=== PATIENT | male | born 1980 | race Hispanic/Latino ===

== ENCOUNTER 2019-01-20 10:41 | Emergency (ER) | payer SELFPAY ==
[2019-01-20 11:24] LABS: BASOPHILS % (AUTO) 0.2 % (0.0-5.0); EOSINOPHILS % (AUTO) 3.1 % (0.0-8.0); HEMATOCRIT 46.5 % (42-54); LYMPHOCYTES % (AUTO) 24.3 % (21.0-51.0); MEAN CORPUSCULAR HEMOGLOBIN 30.3 pg (27.0-33.0); MEAN CORPUSCULAR HGB CONC 34.2 g/dL (32.0-36.0); MEAN CORPUSCULAR VOLUME 88.7 fL (79-99); MONOCYTES % (AUTO) 6.7 % (3.0-13.0); NEUTROPHILS % (AUTO) 65.7 % (40.0-77.0); NUCLEATED RED BLOOD CELLS 0.1 % (0.0-0.19); PLATELET COUNT (AUTO) 170 K/uL (130-400); RED BLOOD CELL COUNT(AUTO) 5.24 MIL/uL (4.50-6.20); WHITE BLOOD COUNT (AUTO) 6.6 K/uL (4.8-10.8)
[2019-01-20 11:28] LABS: CREATININE 0.8 mg/dL (0.5-1.5); POTASSIUM 3.7 mmol/L (3.5-5.1)
[2019-01-20 11:32] LABS: ALBUMIN 4.2 g/dL (3.5-5.0); BILIRUBIN,DIRECT 0.2 mg/dL (0.0-0.3); BILIRUBIN,TOTAL 1.2 mg/dL (0.2-1.0); TOTAL PROTEIN, SERUM 8.5 g/dL (6.0-8.3)
[2019-01-20 11:50] LABS: APPEARANCE,URINE CLEAR (CLEAR); BILIRUBIN,URINE NEGATIVE (NEGATIVE); COLOR,URINE YELLOW (YELLOW); GLUCOSE, URINE (UA) NEGATIVE (NEGATIVE); KETONES,URINE NEGATIVE (NEGATIVE); LEUKOCYTE ESTERASE ,URINE NEGATIVE (NEGATIVE); NITRATE,URINE NEGATIVE (NEGATIVE); OCCULT BLOOD,URINE NEGATIVE (NEGATIVE); PROTEIN,URINE NEGATIVE (NEGATIVE)
[2019-01-20 11:56] LABS: B-TYPE NATRIURETIC PEPTIDE 19 pg/mL (0-100)
[2019-01-20] MEDS ORDERED: CEFAZOLIN SODIUM 1 GM VIAL ONE (13:00)
[2019-01-20] MEDS ORDERED: SODIUM CHLORIDE 0.9% 100 ML IV ONE (13:00)
== END 2019-01-20 13:56 | disposition home or self-care (01) ==
LOC: EDH 10:41
DX: S80.862A Insect bite (nonvenomous), left lower leg, initial encounter (principal); S80.861A Insect bite (nonvenomous), right lower leg, initial encounter; L03.116 Cellulitis of left lower limb; L03.115 Cellulitis of right lower limb; I10 Essential (primary) hypertension; W57.XXXA Bitten or stung by nonvenomous insect and other nonvenomous arthropods, initial encounter; Y93.89 Activity, other specified; Y92.89 Other specified places as the place of occurrence of the external cause; Y99.8 Other external cause status
CPT/HCPCS: 36415; 80048; 80076; 81003; 83880; 85025; 96365; 99284; J0690

== ENCOUNTER 2019-06-19 18:52 | Emergency (ER) | payer OTHER ==
[2019-06-19] MEDS ORDERED: ASPIRIN 81MG TAB.CHEW ONE (19:10)
[2019-06-19 19:25] LABS: BASOPHILS % (AUTO) 0.7 % (0.0-5.0); EOSINOPHILS % (AUTO) 2.3 % (0.0-8.0); HEMATOCRIT 41.1 % (42-54); LYMPHOCYTES % (AUTO) 36.3 % (21.0-51.0); MEAN CORPUSCULAR HEMOGLOBIN 29.9 pg (27.0-33.0); MEAN CORPUSCULAR HGB CONC 34.1 g/dL (32.0-36.0); MEAN CORPUSCULAR VOLUME 87.8 fL (79-99); MONOCYTES % (AUTO) 7.8 % (3.0-13.0); NEUTROPHILS % (AUTO) 52.3 % (40.0-77.0); PLATELET COUNT (AUTO) 217 K/uL (130-400); RED BLOOD CELL COUNT(AUTO) 4.68 MIL/uL (4.50-6.20); RED CELL DISTRIBUTION WIDTH 12.6 % (11.0-15.5); WHITE BLOOD COUNT (AUTO) 6.8 K/uL (4.8-10.8)
[2019-06-19 19:34] LABS: CREATININE 0.9 mg/dL (0.5-1.5); POTASSIUM 3.8 mmol/L (3.5-5.1)
[2019-06-19 19:39] LABS: ALBUMIN 3.9 g/dL (3.5-5.0); BILIRUBIN,TOTAL 0.6 mg/dL (0.2-1.0); TOTAL PROTEIN, SERUM 7.7 g/dL (6.0-8.3)
[2019-06-19 19:40] LABS: INR 0.98 (0.85-1.15); PARTIAL THROMBOPLASTIN TIME 28.8 SEC (26.3-35.5); PROTHROMBIN TIME 10.3 SEC (9.6-11.6)
[2019-06-19] MEDS ORDERED: THIAMINE HCL 100 MG/ML 2ML VIAL ONE (20:02)
[2019-06-19] MEDS ORDERED: SODIUM CHLORIDE 0.9% 1000ML 1,000 ML IV ONE (20:02)
[2019-06-19 20:09] LABS: AMPHET/METH SCREEN,URINE NEGATIVE (NEGATIVE); BARBITURATE SCREEN, URINE NEGATIVE (NEGATIVE); BENZODIAZEPINES SCREEN,URINE NEGATIVE (NEGATIVE); CANNABINOID SCREEN,URINE NEGATIVE (NEGATIVE); COCAINE SCREEN,URINE NEGATIVE (NEGATIVE); OPIATE SCREEN,URINE NEGATIVE (NEGATIVE); PHENCYCLIDINE SCREEN,URINE NEGATIVE (NEGATIVE)
== END 2019-06-19 22:07 | disposition home or self-care (01) ==
LOC: EDH 18:52
DX: R07.89 Other chest pain (principal); F10.10 Alcohol abuse, uncomplicated; I10 Essential (primary) hypertension; Z72.0 Tobacco use
CPT/HCPCS: 36415; 71045; 80053; 80305; 82550; 84484; 85025; 85610; 85730; 93005; 96365; 99285; G0480; J3411; J7030

== ENCOUNTER 2021-03-15 22:38 | Emergency (ER) | payer MEDICAID, OTHER ==
[~2021-03-15] VITALS: Ht 167.6 cm; Wt 100.2 kg
[2021-03-15] MEDS ORDERED: LIDOCAINE HCL 2% VISCOUS 15 ML UDCUP PO ONE (23:00)
[2021-03-15] MEDS ORDERED: MAG/ALUM/SIMETH 30 ML UDCUP PO ONE (23:00)
[2021-03-15] MEDS ORDERED: FAMOTIDINE 20MG VIAL IV ONE (23:00)
[2021-03-15] MEDS ORDERED: DICYCLOMINE HCL 10 MG/5 ML ML PO ONE (23:00)
[2021-03-15 23:07] LABS: BASOPHILS % (AUTO) 0.8 % (0.0-5.0); HEMATOCRIT 40.5 % (42-54); LYMPHOCYTES % (AUTO) 44.1 % (21.0-51.0); MEAN CORPUSCULAR HEMOGLOBIN 30.9 pg (27.0-33.0); MEAN CORPUSCULAR HGB CONC 34.8 g/dL (32.0-36.0); MEAN CORPUSCULAR VOLUME 88.8 fL (79-99); MONOCYTES % (AUTO) 5.7 % (3.0-13.0); PLATELET COUNT (AUTO) 163 K/uL (130-400); RED BLOOD CELL COUNT(AUTO) 4.56 MIL/uL (4.50-6.20); RED CELL DISTRIBUTION WIDTH 12.5 % (11.0-15.5); WHITE BLOOD COUNT (AUTO) 8.4 K/uL (4.8-10.8)
[2021-03-15 23:51] LABS: APPEARANCE,URINE Clear (CLEAR); BILIRUBIN,URINE Negative (NEGATIVE); COLOR,URINE Yellow (YELLOW); GLUCOSE, URINE (UA) Negative (NEGATIVE); KETONES,URINE Negative (NEGATIVE); LEUKOCYTE ESTERASE ,URINE Negative (NEGATIVE); NITRATE,URINE Negative (NEGATIVE); OCCULT BLOOD,URINE Negative (NEGATIVE); PH,URINE 5.5 (5.0-8.0); PROTEIN,URINE Negative (NEGATIVE)
[2021-03-15 23:58] LABS: AMPHET/METH SCREEN,URINE NEGATIVE (NEGATIVE); BARBITURATE SCREEN, URINE NEGATIVE (NEGATIVE); BENZODIAZEPINES SCREEN,URINE NEGATIVE (NEGATIVE); CANNABINOID SCREEN,URINE NEGATIVE (NEGATIVE); COCAINE SCREEN,URINE NEGATIVE (NEGATIVE); OPIATE SCREEN,URINE NEGATIVE (NEGATIVE); PHENCYCLIDINE SCREEN,URINE NEGATIVE (NEGATIVE)
[2021-03-15 23:58] LABS: BILIRUBIN,TOTAL 0.7 mg/dL (0.2-1.0)
[2021-03-16 00:09] VITALS: BP 114/68
[2021-03-16] MEDS ORDERED: POTASSIUM BICARB/CIT AC 25 MEQ TABLET.EFF PO ONE (00:30)
== END 2021-03-16 00:39 | disposition home or self-care (01) ==
LOC: EDH 22:38
DX: K21.9 Gastro-esophageal reflux disease without esophagitis (principal); I10 Essential (primary) hypertension
CPT/HCPCS: 36415; 71045; 80053; 80305; 81003; 83690; 84484; 85025; 93005; 96374; 99285; S0028; J3490

== ENCOUNTER 2021-08-12 22:10 | Emergency (ER) | payer MEDICAID ==
[~2021-08-12] VITALS: Ht 170.2 cm; Wt 90.7 kg
[2021-08-12 22:58] LABS: BASOPHILS % (AUTO) 0.7 % (0.0-5.0); HEMATOCRIT 43.3 % (42-54); LYMPHOCYTES % (AUTO) 40.7 % (21.0-51.0); MEAN CORPUSCULAR HEMOGLOBIN 29.7 pg (27.0-33.0); MEAN CORPUSCULAR HGB CONC 34.2 g/dL (32.0-36.0); MEAN CORPUSCULAR VOLUME 86.8 fL (79-99); MONOCYTES % (AUTO) 6.3 % (3.0-13.0); PLATELET COUNT (AUTO) 208 K/uL (130-400); RED BLOOD CELL COUNT(AUTO) 4.99 MIL/uL (4.50-6.20); RED CELL DISTRIBUTION WIDTH 12.5 % (11.0-15.5); WHITE BLOOD COUNT (AUTO) 7.5 K/uL (4.8-10.8)
[2021-08-12] MEDS ORDERED: ASPIRIN 325MG TAB PO ONE (23:00)
[2021-08-12 23:01] LABS: APPEARANCE,URINE Clear (CLEAR); BILIRUBIN,URINE Negative (NEGATIVE); COLOR,URINE Yellow (YELLOW); GLUCOSE, URINE (UA) Negative (NEGATIVE); KETONES,URINE Negative (NEGATIVE); LEUKOCYTE ESTERASE ,URINE Negative (NEGATIVE); NITRATE,URINE Negative (NEGATIVE); OCCULT BLOOD,URINE Negative (NEGATIVE); PROTEIN,URINE Negative (NEGATIVE)
[2021-08-12 23:03] LABS: INR 1.03 (0.85-1.15); PROTHROMBIN TIME 11.2 SEC (9.6-11.6)
[2021-08-12 23:05] LABS: PARTIAL THROMBOPLASTIN TIME 32.2 SEC (26.3-35.5)
[2021-08-12 23:08] LABS: AMPHET/METH SCREEN,URINE NEGATIVE (NEGATIVE); BARBITURATE SCREEN, URINE NEGATIVE (NEGATIVE); BENZODIAZEPINES SCREEN,URINE NEGATIVE (NEGATIVE); CANNABINOID SCREEN,URINE NEGATIVE (NEGATIVE); COCAINE SCREEN,URINE POSITIVE (NEGATIVE); OPIATE SCREEN,URINE NEGATIVE (NEGATIVE); PHENCYCLIDINE SCREEN,URINE NEGATIVE (NEGATIVE)
[2021-08-12 23:16] LABS: ALBUMIN 4.3 g/dL (3.5-5.0); BILIRUBIN,TOTAL 0.7 mg/dL (0.2-1.0); CREATININE 0.9 mg/dL (0.5-1.5); MAGNESIUM 2.2 mg/dL (1.80-2.40); POTASSIUM 3.6 mmol/L (3.5-5.1); TOTAL PROTEIN, SERUM 8.1 g/dL (6.0-8.3)
[2021-08-12 23:58] LABS: B-TYPE NATRIURETIC PEPTIDE 9 pg/mL (0-100)
[2021-08-13 02:58] VITALS: BP 115/73
== END 2021-08-13 03:48 | disposition home or self-care (01) ==
LOC: EDH 22:10
DX: R07.89 Other chest pain (principal); F10.129 Alcohol abuse with intoxication, unspecified; F14.10 Cocaine abuse, uncomplicated; I10 Essential (primary) hypertension; Z79.82 Long term (current) use of aspirin
CPT/HCPCS: 36415; 71045; 80053; 80305; 81003; 82550; 83735; 83880; 84484; 85025; 85610; 85730; 93005

== ENCOUNTER 2022-06-17 18:27 | Emergency (ER) | payer MEDICAID ==
[~2022-06-17] VITALS: Ht 165.1 cm; Wt 99.8 kg
[2022-06-17 19:26] VITALS: BP 150/90
[2022-06-17] MEDS ORDERED: CETI10TA57 PO (21:16)
[2022-06-17] MEDS ORDERED: CETIRIZINE HCL 5 MG TABLET PO ONE ×2 (21:33→21:35)
[2022-06-18] MEDS ORDERED: CETIRIZINE HCL 5 MG TABLET PO SCH (09:00)
== END 2022-06-17 21:41 | disposition home or self-care (01) ==
LOC: EDH 18:27
DX: J30.2 Other seasonal allergic rhinitis (principal); Z20.822 Contact with and (suspected) exposure to COVID-19; I10 Essential (primary) hypertension
CPT/HCPCS: 99283; 87635; 87880; 87804 ×2; C9803

== ENCOUNTER 2023-06-15 01:29 | Emergency (ER) | payer MEDICAID, OTHER ==
[~2023-06-15] VITALS: Ht 162.6 cm; Wt 95.3 kg
[~2023-06-15 01:29] MED LIST: CETI10TA57 PO
[2023-06-15 01:43] LABS: ADD UA MICROSCOPIC NO; APPEARANCE,URINE CLEAR (CLEAR); BILIRUBIN,URINE NEGATIVE (NEGATIVE); COLOR,URINE COLORLESS (YELLOW); GLUCOSE, URINE (UA) NEGATIVE (NEGATIVE); KETONES,URINE NEGATIVE (NEGATIVE); LEUKOCYTE ESTERASE ,URINE NEGATIVE Leu/uL (NEGATIVE); NITRATE,URINE NEGATIVE (NEGATIVE); OCCULT BLOOD,URINE NEGATIVE (NEGATIVE); PROTEIN,URINE NEGATIVE (NEGATIVE); UROBILINOGEN,URINE 0.2 mg/dL (0.2-1.0)
[2023-06-15 01:53] LABS: AMPHET/METH SCREEN,URINE NEGATIVE (NEGATIVE); BARBITURATE SCREEN, URINE NEGATIVE (NEGATIVE); BENZODIAZEPINES SCREEN,URINE NEGATIVE (NEGATIVE); CANNABINOID SCREEN,URINE NEGATIVE (NEGATIVE); COCAINE SCREEN,URINE NEGATIVE (NEGATIVE); OPIATE SCREEN,URINE NEGATIVE (NEGATIVE); PHENCYCLIDINE SCREEN,URINE NEGATIVE (NEGATIVE)
[2023-06-15] MEDS ORDERED: IOHEXOL 350 MG/ML 100ML INFUS..BTL IV ONE (01:54)
[2023-06-15 01:56] LABS: BASOPHILS # (AUTO) 0.04 K/uL (0.00-0.20); BASOPHILS % (AUTO) 0.7 % (0.0-5.0); EOSINOPHILS # (AUTO) 0.07 K/uL (0.00-0.70); EOSINOPHILS % (AUTO) 1.2 % (0.0-8.0); HEMATOCRIT 43.4 % (42-54); IMMATURE GRANULOCYTE ABSOLUTE 0.02 K/uL (0-1); LYMPHOCYTES # (AUTO) 1.6 K/uL (1.0-4.8); LYMPHOCYTES % (AUTO) 27.4 % (21.0-51.0); MEAN CORPUSCULAR HEMOGLOBIN 29.4 pg (27.0-33.0); MEAN CORPUSCULAR HGB CONC 34.3 g/dL (32.0-36.0); MEAN CORPUSCULAR VOLUME 85.6 fL (79-99); MONOCYTES # (AUTO) 0.3 K/uL (0.1-1.0); MONOCYTES % (AUTO) 5.7 % (3.0-13.0); NEUTROPHILS # (AUTO) 3.9 K/uL (1.8-7.7); NEUTROPHILS % (AUTO) 64.7 % (40.0-77.0); PLATELET COUNT (AUTO) 185 K/uL (130-400); RED BLOOD CELL COUNT(AUTO) 5.07 MIL/uL (4.50-6.20); RED CELL DISTRIBUTION WIDTH 12.2 % (11.0-15.5)
[2023-06-15] MEDS ORDERED: METOCLOPRAMIDE 10 MG/2 ML VIAL IVP ONE (02:00)
[2023-06-15] MEDS ORDERED: MORPHINE 2 MG SYG IVP ONE (02:00)
[2023-06-15] MEDS ORDERED: FAMOTIDINE 20MG VIAL IV ONE (02:00)
[2023-06-15] MEDS ORDERED: 0.9%NACL 1000ML 1,000 ML IV ONE (02:00)
[2023-06-15 02:05] LABS: CREATININE 0.8 mg/dL (0.5-1.5); POTASSIUM 3.5 mmol/L (3.5-5.1)
[2023-06-15 04:00] VITALS: BP 130/75; PULSE 93; RESP 16; O2SAT 97
[2023-06-15] MEDS ORDERED: HYDRALAZINE 20MG/ML VIAL IV ONE (04:00)
== END 2023-06-15 04:15 | disposition home or self-care (01) ==
LOC: EDH 01:29
DX: S01.81XA Laceration without foreign body of other part of head, initial encounter (principal); I10 Essential (primary) hypertension; Z79.899 Other long term (current) drug therapy; V89.2XXA Person injured in unspecified motor-vehicle accident, traffic, initial encounter; Y93.I9 Activity, other involving external motion; Y92.488 Other paved roadways as the place of occurrence of the external cause; Y99.8 Other external cause status
CPT/HCPCS: 99285; 70450; 96374; 71045; 96375; 96361; 12013; 82550; 84484; 80048; 80305; 85025; 81003; 36415; 72125; 71260; 74177; 93005; J3490; J2270; J7030; J2765; Q9967

== ENCOUNTER 2023-06-27 13:38 | Emergency (ER) | payer OTHER ==
[~2023-06-27] VITALS: Ht 170.2 cm; Wt 95.3 kg
[2023-06-27 14:08] VITALS: BP 162/100; PULSE 84; RESP 18
== END 2023-06-27 16:30 | disposition home or self-care (01) ==
LOC: EDH 13:38
DX: S01.01XD Laceration without foreign body of scalp, subsequent encounter (principal); I10 Essential (primary) hypertension; Z48.02 Encounter for removal of sutures; Z98.890 Other specified postprocedural states; X58.XXXD Exposure to other specified factors, subsequent encounter
CPT/HCPCS: 99282

== ENCOUNTER 2023-10-16 07:56 | Emergency (ER) | payer OTHER ==
[~2023-10-16] VITALS: Ht 167.6 cm; Wt 94.3 kg
[2023-10-16 08:20] VITALS: BP 155/103; PULSE 90; RESP 18; O2SAT 96
[2023-10-16] MEDS: IBUPROFEN 800 MG TAB PO ONE (08:38)
[2023-10-16 08:42] LABS: INFLUENZA TYPE A NEGATIVE FOR TYPE A (NEG); INFLUENZA TYPE B NEGATIVE FOR TYPE B (NEG)
[2023-10-16 08:55] LABS: COVID19 (SARS ANTIGEN RAPID) PRESUMPTIVE NEGATIVE (NEGATIVE)
[2023-10-16 09:22] LABS: RAPID GROUP A STREP negative (NEGATIVE)
[2023-10-16] MEDS ORDERED: IBUP-2070 PO (10:38)
[2023-10-16] MEDS ORDERED: D ME PO (10:38)
== END 2023-10-16 11:15 | disposition home or self-care (01) ==
LOC: EDH 07:56
DX: J06.9 Acute upper respiratory infection, unspecified (principal); I10 Essential (primary) hypertension; Z20.822 Contact with and (suspected) exposure to COVID-19
CPT/HCPCS: 87426; 87804; 87880

== ENCOUNTER 2024-06-17 23:59 | Emergency (ER) | payer SELFPAY ==
[~2024-06-17] VITALS: Ht 170.2 cm; Wt 103.4 kg
[~2024-06-17 23:59] MED LIST changes: +D ME PO; +DICY20TA2 PO; +IBUP-2070 PO
--- NOTE | 2024-06-18 00:23 | EKG ---
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
[2024-06-18 00:48] LABS: BASOPHILS # (AUTO) 0.04 K/uL (0.00-0.20); BASOPHILS % (AUTO) 0.7 % (0.0-5.0); EOSINOPHILS # (AUTO) 0.22 K/uL (0.00-0.70); EOSINOPHILS % (AUTO) 3.8 % (0.0-8.0); HEMATOCRIT 43.3 % (42-54); IMMATURE GRANULOCYTE ABSOLUTE 0.02 K/uL (0-1); LYMPHOCYTES # (AUTO) 1.9 K/uL (1.0-4.8); LYMPHOCYTES % (AUTO) 32.6 % (21.0-51.0); MEAN CORPUSCULAR HEMOGLOBIN 30.8 pg (27.0-33.0); MEAN CORPUSCULAR HGB CONC 34.9 g/dL (32.0-36.0); MEAN CORPUSCULAR VOLUME 88.4 fL (79-99); MONOCYTES # (AUTO) 0.5 K/uL (0.1-1.0); NEUTROPHILS # (AUTO) 3.2 K/uL (1.8-7.7); NEUTROPHILS % (AUTO) 54.6 % (40.0-77.0); PLATELET COUNT (AUTO) 178 K/uL (130-400); WHITE BLOOD COUNT (AUTO) 5.9 K/uL (4.8-10.8)
[2024-06-18 00:58] LABS: CREATININE 0.9 mg/dL (0.5-1.3); POTASSIUM 4.1 mmol/L (3.5-5.1)
[2024-06-18] MEDS: 0.9%NACL 1000ML 1,000 ML IV ONE (02:04)
[2024-06-18 02:31] LABS: SARS-CoV-2, RNA, NAAT NEGATIVE SARS CoV-2 (NEGATIVE)
[2024-06-18 02:34] LABS: INFLUENZA TYPE A Negative For Type A (NEGATIVE); INFLUENZA TYPE B Negative For Type B (NEGATIVE)
[2024-06-18] MEDS ORDERED: BENZ-39 PO (02:42)
[2024-06-18] MEDS ORDERED: METH4TAB3 PO (02:42)
--- NOTE | 2024-06-18 02:44 | ERN ---
General Chief Complaint: Abdominal Pain Stated Complaint: C/O ABD PAIN, COUGH, CP Time Seen by MD: 00:02 Time Seen by Midlevel: 00:02 History of Present Illness Initial Comments Patient is a 44-year-old male presenting to the emergency department multiple complaints. Patient states he has been coughing for the last couple of days. The coughing worsened today. He states the cough has worsened and he now reports abdominal soreness. Denies sick contacts. Denies any other symptoms at this time. Allergies: Coded Allergies: No Known Allergies (Unverified Allergy, Unknown, 01/20/19) No Known Drug Allergies (Unverified Allergy, Unknown, 06/19/19) Home Meds Active Scripts Benzonatate (Tessalon Perles) 100 Mg Cap, 100 MG PO TID for cough for 10 Days, #30 CAP 0 Refills Prov:ENRRIQUE MORTON 06/18/24 Methylprednisolone (Medrol) 4 Mg Tab.ds.pk, 1 TAB PO AD for 6 Days, #21 TAB 0 Refills 6 on day 1 then reduce by one tablet daily until gone Prov:ENRRIQUE MORTON 06/18/24 Dicyclomine HCl (Bentyl) 20 Mg Tab, 20 MG PO Q6HPRN PRN for MODERATE PAIN, #30 TAB Prov:MARIUM LOWE NP 01/06/24 Ibuprofen (Ibuprofen) 600 Mg Tablet, 600 MG PO Q6H PRN for PAIN, #30 TAB 0 Refills Prov:KRYSTAL GRAY MD 10/16/23 D-Methorphan Hb/Acetaminophen (Pain Relief Cold & Cough Liq) 1,000 Mg-30 Mg/30 Ml Liquid, 5 ML PO QIDP PRN for COUGH/COLD SYMPTOMS, #100 ML 0 Refills Prov:KRYSTAL GRAY MD 10/16/23 Cetirizine HCl (Cetirizine HCl) 10 Mg Tablet, 10 MG PO DAILY, #30 TAB Prov:CORRINE RAMIREZ 06/17/22 Past Medical History Past Medical History: Hypertension Past Surgical History: None Family History Family History: Negative Social History Social History: ETOH, Lives with family ROS Dictation CONSTITUTIONAL: Negative except for HPI HEAD/FACE: Negative except for HPI EENT: Negative except for HPI RESPIRATORY: Negative except for HPI GASTROINTESTINAL/ABDOMINAL: Negative except for HPI GENITOURINARY: Negative except for HPI MUSCULOSKELETAL: Negative except for HPI INTEGUMENTARY: Negative except for HPI NEUROLOGICAL/PSYCH: Negative except for HPI HEMATOLOGIC/LYMPHATIC: Negative except for HPI All Systems Negative, Except as noted above. 13 point review of systems assessed and all negative except for above. Physical Exam Physical Exam Dictation Vital Signs reviewed General Appearance: Alert, oriented x 3, no acute distress, well developed, nourished. Head and Face: non-traumatic. Eyes: PERRL, pink conjunctivas, eyelid no trauma, anterior chamber with arcus senilis. Ears: Pinnas intact and no signs of trauma or erythema ear canals clear and no discharge TM no erythema Nose: No discharge, no bleeding. Oropharynx: Mouth normal, tongue pink, pharynx clear,no erythema, tonsils no exudates, no abscesses noted, mucous membrane moist Neck: Supple, non-tender, no thyromegaly, no masses, no JVD, no bruits Breast:Deferred Chest:No tenderness, no crepitus, no paradoxical movement, no retractions Lungs:Clear, well-ventilated, symmetric, no rales, no wheezing, no rhonchi, no stridor, good breath sounds bilaterally Heart: Tachycardic, regular rhythm, no murmur, no gallops Vascular: no peripheral edema, Abdomen: Soft, positive bowel sounds, nondistended, no guarding, nontender, no rebound, no masses no hepatomegaly, no splenomegaly, no Germain's sign, no hernias. Rectal: Deferred Genital: Deferred Neurological: Normal speech, motor function intact, sensory function intact Musculoskeletal: Neck nontender, full range of motion, back nontender, full range of motion, Extremities: nontender, full range of motion Skin: Color pink, dry, no turgor, no rash, no lacerations, no abrasions, no contusions. Lymphatic: Deferred Results Laboratory and Microbiology Lab and Micro Result Laboratory Tests Test 06/18/24 00:39 06/18/24 02:10 White Blood Count 5.9 K/uL (4.8-10.8) Red Blood Count 4.90 MIL/uL (4.50-6.20) Hemoglobin 15.1 g/dL (14.0-18.0) Hematocrit 43.3 % (42-54) Mean Corpuscular Volume 88.4 fL (79-99) Mean Corpuscular Hemoglobin 30.8 pg (27.0-33.0) Mean Corpuscular Hemoglobin Concent 34.9 g/dL (32.0-36.0) Red Cell Distribution Width 12.0 % (11.0-15.5) Platelet Count 178 K/uL (130-400) Mean Platelet Volume 11.3 fL (7.5-10.5) H Immature Granulocyte % (Auto) 0.3 % (0-1) Neutrophils (%) (Auto) 54.6 % (40.0-77.0) Lymphocytes (%) (Auto) 32.6 % (21.0-51.0) Monocytes (%) (Auto) 8.0 % (3.0-13.0) Eosinophils (%) (Auto) 3.8 % (0.0-8.0) Basophils (%) (Auto) 0.7 % (0.0-5.0) Neutrophils # (Auto) 3.2 K/uL (1.8-7.7) Lymphocytes # (Auto) 1.9 K/uL (1.0-4.8) Monocytes # (Auto) 0.5 K/uL (0.1-1.0) Eosinophils # (Auto) 0.22 K/uL (0.00-0.70) Basophils # (Auto) 0.04 K/uL (0.00-0.20) Absolute Immature Granulocyte (auto 0.02 K/uL (0-1) Nucleated Red Blood Cells 0.0 % (0.0-0.19) Sodium Level 141 mmol/L (136-145) Potassium Level 4.1 mmol/L (3.5-5.1) Chloride Level 102 mmol/L (101-111) Carbon Dioxide Level 30 mmol/L (21-32) Blood Urea Nitrogen 16 mg/dL (7-18) Creatinine 0.9 mg/dL (0.5-1.3) Glomerular Filtration Rate Calc 108 mL/min (>90) Random Glucose 172 mg/dL (70-105) H Total Calcium 9.2 mg/dL (8.5-10.1) Troponin I High Sensitivity 14 ng/L (4-75) Influenza Type A Antigen Negative For Type A Influenza Type B Antigen Negative For Type B SARS-CoV-2, RNA, NAAT NEGATIVE SARS CoV-2 Labs Reviewed?: Yes MDM MDM: Differential diagnosis: Bronchitis, pneumonia, viral syndrome, upper respiratory infection There are no social concerns with this patient. Prescription drug management Prescriptions will include: Medrol pack and Tessalon Perles Medical management and examination interpretation discussions were had by me with other qualified healthcare professionals as indicated for the patient's care. ED Course Orders Procedure Category Date Status Time 12 Lead Ekg Tracing- EKG 06/18/24 Complete Technical 00:02 Covid Rna Naat LAB 06/18/24 Complete 00:02 Influenza Type A & B, LAB 06/18/24 Complete Rapid 00:02 Cbc With Differential LAB 06/18/24 Complete 00:02 Basic Metabolic Panel LAB 06/18/24 Complete 00:02 Troponin I High LAB 06/18/24 Complete Sensitivity 00:02 Chest 1vw RAD 06/18/24 Taken 00:02 0.9%Nacl 1000ml (Ns PHA 06/18/24 Complete 1000ml) 00:30 Current Medications Medications (Trade) Dose Ordered Sig/Rolanda Route PRN Reason Start Time Stop Time Status Last Admin Dose Admin Sodium Chloride 1,000 ml @ 0 mls/hr ONCE ONCE IV 06/18/24 00:30 06/18/24 00:31 DC 06/18/24 02:04 Vital Signs Date Time Temp Pulse Resp B/P (MAP) Pulse Ox O2 Delivery O2 Flow Rate FiO2 06/18/24 00:02 98.1 119 20 160/110 98 Room Air DX & DISP Disposition: Discharge Departure Impression: Primary Impression: Viral syndrome Additional Impression: Acute bronchitis Condition: Stable Scripts Benzonatate (Tessalon Perles) 100 Mg Cap 100 MG PO TID for cough for 10 Days, #30 CAP 0 Refills Prov: ENRRIQUE MORTON 06/18/24 Methylprednisolone (Medrol) 4 Mg Tab.ds.pk 1 TAB PO AD for 6 Days, #21 TAB 0 Refills 6 on day 1 then reduce by one tablet daily until gone Prov: ENRRIQUE MORTON 06/18/24 Additional Instructions: Your blood work today is unremarkable. You have tested negative for influenza a, influenza B, and COVID-19. Your chest x-ray does not show any evidence of pneumonia. Your symptoms are most likely related to a viral illness. I have given you prescriptions which should help with your symptoms over the next couple of days. Referrals: SELF,REFERRAL (PCP) Time of Disposition: 02:41 I have reviewed the case, and I agree with, Diagnosis and Plan I performed the substantive portion of the visit. I have reviewed and personally made and approve the management plan that is documented in the note by myself or the OG. I acknowledge for responsibility for the patient's management plan. ENRRIQUE MORTON Jun 18, 2024 02:44
[2024-06-18 02:55] VITALS: BP 142/92; PULSE 94; RESP 16; TEMP 98.2; O2SAT 98
--- NOTE | 2024-06-18 08:34 | HMCIMG ---
CHEST 1VW REASON: cp COMPARISON: 06/15/2023 FINDINGS: Single view of the chest was obtained. Lungs are clear. Heart size is normal. There is no pulmonary vascular congestion. Mediastinum and bony thorax appear unremarkable. IMPRESSION: 1. Normal single view chest x-ray.
== END 2024-06-18 03:06 | disposition home or self-care (01) ==
LOC: EDH 23:59
DX: B34.9 Viral infection, unspecified (principal); J20.9 Acute bronchitis, unspecified; I10 Essential (primary) hypertension; Z20.822 Contact with and (suspected) exposure to COVID-19
CPT/HCPCS: 99285; 87635; 84484; 80048; 85025; 87804 ×2; 36415; 96360; 71045; 93005; J7030

== ENCOUNTER 2024-07-06 21:09 | Emergency (ER) | payer SELFPAY ==
[~2024-07-06] VITALS: Ht 165.1 cm; Wt 101.6 kg
[~2024-07-06 21:09] MED LIST changes: +BENZ-39 PO; +METH4TAB3 PO
--- NOTE | 2024-07-06 21:18 | NUR ---
SEPSIS ALERT CALLED TO FT1; PT WITH TEMP OF 103.1 AND PULSE OF 132
[2024-07-06] MEDS: [UNRECOGNIZED DRUG - OTHER] IV ONE (21:44)
[2024-07-06] MEDS: cefTRIAXone 1G VIAL IVPB ONE (21:44)
[2024-07-06] MEDS: ondanSETRON 4MG INJ IVP ONE (21:44)
[2024-07-06] MEDS: acetaMINOPHEN 500 MG TABLET PO ONE (21:45)
[2024-07-06 21:48] LABS: BASOPHILS # (AUTO) 0.02 K/uL (0.00-0.20); BASOPHILS % (AUTO) 0.3 % (0.0-5.0); EOSINOPHILS # (AUTO) 0.04 K/uL (0.00-0.70); EOSINOPHILS % (AUTO) 0.6 % (0.0-8.0); HEMATOCRIT 40.5 % (42-54); IMMATURE GRANULOCYTE ABSOLUTE 0.02 K/uL (0-1); LYMPHOCYTES # (AUTO) 0.5 K/uL (1.0-4.8); LYMPHOCYTES % (AUTO) 7.2 % (21.0-51.0); MEAN CORPUSCULAR HEMOGLOBIN 30.3 pg (27.0-33.0); MEAN CORPUSCULAR HGB CONC 34.8 g/dL (32.0-36.0); MEAN CORPUSCULAR VOLUME 86.9 fL (79-99); MONOCYTES # (AUTO) 0.6 K/uL (0.1-1.0); MONOCYTES % (AUTO) 8.9 % (3.0-13.0); NEUTROPHILS # (AUTO) 5.4 K/uL (1.8-7.7); NEUTROPHILS % (AUTO) 82.7 % (40.0-77.0); PLATELET COUNT (AUTO) 149 K/uL (130-400); RED BLOOD CELL COUNT(AUTO) 4.66 MIL/uL (4.50-6.20); RED CELL DISTRIBUTION WIDTH 12.4 % (11.0-15.5); WHITE BLOOD COUNT (AUTO) 6.5 K/uL (4.8-10.8)
--- NOTE | 2024-07-06 21:48 | EKG ---
[facility] Test Date: 2024-07-06 Test Time: 21:45:30 Pat Name: VINNY THOMAS Department: [facility] Room: Gender: Director Clinical Information Services: [facility] : 1980 Requested By: REBECCA DARLING Order Number: [id number] Reading MD: Capo Rodgers Measurements Intervals [place] Rate: 127 P: 20 WV: 136 QRS: 51 QRSD: 88 T: 91 QT: 305 QTc: 444 Interpretive Statements Sinus tachycardia Compared to ECG 06/18/2024 00:20:21 No significant changes Electronically Signed On 07-09-2024 17:34:10 MANAGER DIGITAL by Capo Rodgers Please click the below link to view image of tracing.
[2024-07-06 21:55] LABS: SARS-CoV-2, RNA, NAAT NEGATIVE SARS CoV-2 (NEGATIVE)
[2024-07-06 21:58] LABS: RAPID GROUP A STREP negative (NEGATIVE)
[2024-07-06 21:59] LABS: CREATININE 1.1 mg/dL (0.5-1.3)
[2024-07-06 22:07] LABS: INFLUENZA TYPE B Negative For Type B (NEGATIVE)
[2024-07-06 22:16] LABS: INFLUENZA TYPE A Positive For Type A (NEGATIVE)
[2024-07-06 22:18] LABS: B-TYPE NATRIURETIC PEPTIDE 16 pg/mL (0-100)
[2024-07-06 22:30] LABS: WBC MORPHOLOGY CONSISTENT W/DIFF
[2024-07-06 22:34] LABS: PLATELET MORPHOLOGY LARGE PLTS PRESENT
[2024-07-06 22:50] VITALS: TEMP 102
[2024-07-06] MEDS: OSELTAMIVIR PHOSPHATE 75 MG CAP PO ONE (23:30)
[2024-07-06] MEDS ORDERED: OSEL75 PO (23:31)
--- NOTE | 2024-07-06 23:32 | ERN ---
ED Note History of Present Illness Stated Complaint: C/O COUGH, SORE THROAT, CONGESTION, HEADACHE Chief Complaint: Cough Time Seen by MD: 21:22 Time Seen by Midlevel: 21:22 Dictation: The patient is a 44-year-old male with a history of hypertension who presents to the emergency department with complaints of generalized body weakness, body aches, fevers, cough onset this morning. Allergies: Coded Allergies: No Known Allergies (Unverified Allergy, Unknown, 01/20/19) No Known Drug Allergies (Unverified Allergy, Unknown, 06/19/19) Home Meds Active Scripts Benzonatate (Tessalon Perles) 100 Mg Cap, 100 MG PO TID for cough for 10 Days, #30 CAP 0 Refills Prov:ENRRIQUE MORTON 06/18/24 Methylprednisolone (Medrol) 4 Mg Tab.ds.pk, 1 TAB PO AD for 6 Days, #21 TAB 0 Refills 6 on day 1 then reduce by one tablet daily until gone Prov:ENRRIQUE MORTON 06/18/24 Dicyclomine HCl (Bentyl) 20 Mg Tab, 20 MG PO Q6HPRN PRN for MODERATE PAIN, #30 TAB Prov:MARIUM LOWE NP 01/06/24 Ibuprofen (Ibuprofen) 600 Mg Tablet, 600 MG PO Q6H PRN for PAIN, #30 TAB 0 Refills Prov:KRYSTAL GRAY MD 10/16/23 D-Methorphan Hb/Acetaminophen (Pain Relief Cold & Cough Liq) 1,000 Mg-30 Mg/30 Ml Liquid, 5 ML PO QIDP PRN for COUGH/COLD SYMPTOMS, #100 ML 0 Refills Prov:KRYSTAL GRAY MD 10/16/23 Cetirizine HCl (Cetirizine HCl) 10 Mg Tablet, 10 MG PO DAILY, #30 TAB Prov:CORRINE RAMIREZP 06/17/22 Past Medical History Past Medical History: Hypertension Surgical History: None Family History: Negative Social History: ETOH, Lives with family RN Note Reviewed/Agreed w/PFSH: Yes Review of System Dictation Constitutional: Negative for ,chills, and weight loss positive for fever Eyes: Negative for injury, pain,redness, and discharge ENT: Negative for injury,pain or swelling Cardiovascular: Negative for chest pain, palpitations, and edema Respiratory: Negative for shortness of breath, and wheezing, positive for cough Abdomen/GI: Negative for abdominal pain, nausea, vomiting, diarrhea, and cons tipation Back: Negative for injury and pain : Negative for injury, bleeding and discharge MS/Extremity: Negative for injury and deformity Skin: Negative for rash, and discoloration Neuro: Negative for headache, weakness, numbness, tingling, and seizure Psych: Negative for suicide ideation, homicidal ideation, and hallucinations Initial Vital Sign VS Vital Signs Date Time Temp Pulse Resp B/P (MAP) Pulse Ox O2 Delivery O2 Flow Rate FiO2 07/06/24 21:14 103.1 132 24 178/107 94 Room Air 07/06/24 21:36 0 21 Physical Exam Dictation Vital Signs reviewed General Appearance: Alert, oriented x 3, no acute distress, well developed, nourished. Head and Face: non-traumatic. Eyes: PERRL, pink conjunctivas, eyelid no trauma, anterior chamber with arcus senilis. Ears: Pinnas intact and no signs of trauma or erythema ear canals clear and no discharge TM no erythema Nose: No discharge, no bleeding. Oropharynx: Mouth normal, tongue pink. pharynx clear,no erythema, tonsils no exudates, no abscesses noted, mucous membrane moist Neck: Supple, non-tender, no thyromegaly, no masses, no JVD, no bruits Breast:Deferred Chest:No tenderness, no crepitus, no paradoxical movement, no retractions Lungs:Clear, well-ventilated, symmetric, no rales, no wheezing, no rhonchi, no stridor, good breath sounds bilaterally Heart: Regular rate, regular rhythm, no murmur, no gallops Vascular: no peripheral edema, Abdomen: Soft, positive bowel sounds, nondistended, no guarding, nontender, no rebound, no masses no hepatomegaly, no splenomegaly, no Germain's sign, no hernias. Rectal: Deferred Genital: Deferred Neurological: Normal speech, motor function intact, sensory function intact Musculoskeletal: Neck nontender, full range of motion, back nontender, full range of motion, Extremities: nontender, full range of motion Skin: Color pink, dry, no turgor, no rash, no lacerations, no abrasions, no contusions. Lymphatic: Deferred Results (Laboratory/Radiology) Laboratory/Radiology Laboratory Tests Test 07/06/24 21:13 07/06/24 21:37 Influenza Type A Antigen Positive For Type A Influenza Type B Antigen Negative For Type B SARS-CoV-2, RNA, NAAT NEGATIVE SARS CoV-2 Group A Streptococcus Rapid negative (NEGATIVE) White Blood Count 6.5 K/uL (4.8-10.8) Red Blood Count 4.66 MIL/uL (4.50-6.20) Hemoglobin 14.1 g/dL (14.0-18.0) Hematocrit 40.5 % (42-54) L Mean Corpuscular Volume 86.9 fL (79-99) Mean Corpuscular Hemoglobin 30.3 pg (27.0-33.0) Mean Corpuscular Hemoglobin Concent 34.8 g/dL (32.0-36.0) Red Cell Distribution Width 12.4 % (11.0-15.5) Platelet Count 149 K/uL (130-400) Mean Platelet Volume 11.0 fL (7.5-10.5) H Immature Granulocyte % (Auto) 0.3 % (0-1) Neutrophils (%) (Auto) 82.7 % (40.0-77.0) H Lymphocytes (%) (Auto) 7.2 % (21.0-51.0) L Monocytes (%) (Auto) 8.9 % (3.0-13.0) Eosinophils (%) (Auto) 0.6 % (0.0-8.0) Basophils (%) (Auto) 0.3 % (0.0-5.0) Neutrophils # (Auto) 5.4 K/uL (1.8-7.7) Lymphocytes # (Auto) 0.5 K/uL (1.0-4.8) L Monocytes # (Auto) 0.6 K/uL (0.1-1.0) Eosinophils # (Auto) 0.04 K/uL (0.00-0.70) Basophils # (Auto) 0.02 K/uL (0.00-0.20) Absolute Immature Granulocyte (auto 0.02 K/uL (0-1) Nucleated Red Blood Cells 0.0 % (0.0-0.19) White Cell Morphology Comment CONSISTENT W/DIFF Platelet Morphology LARGE PLTS PRESENT Red Blood Cell Morphology STOMATOCYTES 1+ Sodium Level 136 mmol/L (136-145) Potassium Level 4.0 mmol/L (3.5-5.1) Chloride Level 96 mmol/L (101-111) L Carbon Dioxide Level 30 mmol/L (21-32) Blood Urea Nitrogen 17 mg/dL (7-18) Creatinine 1.1 mg/dL (0.5-1.3) Glomerular Filtration Rate Calc 85 mL/min (>90) Random Glucose 123 mg/dL (70-105) H Lactic Acid Level 1.0 mmol/L (0.8-2.5) Total Calcium 9.5 mg/dL (8.5-10.1) Total Creatine Kinase 233 U/L (21-232) #H Troponin I High Sensitivity 16 ng/L (4-75) B-Type Natriuretic Peptide 16 pg/mL (0-100) Labs Reviewed?: Yes EKG: (+) rhythm (Sinus tachycardia) EKG Comment: Date:07/06/2024 Time:2144 Ventricular rate:127 TN interval:136 QRS duration:88 QT/QTc:305 EKG interpretation: Sinus tachycardia Reviewed by ED Attending no STEMI ED Course ED Course Orders Procedure Category Date Status Time Covid Rna Naat LAB 07/06/24 Complete 21:12 Influenza Type A & B, LAB 07/06/24 Complete Rapid 21:12 Rapid (Group A Strep) LAB 07/06/24 Complete 21:12 12 Lead Ekg Tracing- EKG 07/06/24 Complete Technical 21:33 Cbc With Differential LAB 07/06/24 Complete 21:33 Blood Cult SHAYNE 07/06/24 In Process 21:33 Urinalysis Profile LAB 07/06/24 Logged 21:33 Chest 1vw RAD 07/06/24 Taken 21:33 Acetaminophen 500mg PHA 07/06/24 Complete Tab (Tylenol 500mg T 22:00 0.9%Nacl 1000ml (Ns PHA 07/06/24 In Process 1000ml) 22:00 Creatine Kinase, Total LAB 07/06/24 Complete 21:33 Troponin I High LAB 07/06/24 Complete Sensitivity 21:33 B-Type Natriuretic LAB 07/06/24 Complete Peptide 21:33 Lactic Acid LAB 07/06/24 Complete 21:33 Ceftriaxone 1g Vial PHA 07/06/24 Complete (Rocephine 1g Inj) 22:00 Basic Metabolic Panel LAB 07/06/24 Complete 21:33 Ondansetron 4mg Inj PHA 07/06/24 Complete (Zofran 4mg Inj) 22:00 Oseltamivir Phosphate PHA 07/06/24 Logged (Tamiflu) 23:30 Current Medications Medications (Trade) Dose Ordered Sig/Rolanda Route PRN Reason Start Time Stop Time Status Last Admin Dose Admin Acetaminophen (TYLenol 500MG TAB) 1,000 mg ONCE ONCE PO 07/06/24 22:00 07/06/24 22:01 DC 07/06/24 21:45 Ceftriaxone Sodium (ROCEphine 1G INJ) 1 gm ONCE ONCE IVPB 07/06/24 22:00 07/06/24 22:01 DC 07/06/24 21:44 Ondansetron HCl (zoFRAN 4MG INJ) 4 mg ONCE ONCE IVP 07/06/24 22:00 07/06/24 22:01 DC 07/06/24 21:44 Sodium Chloride 2,326 ml @ 775.333 mls/hr ONCE ONCE IV 07/06/24 22:00 07/07/24 00:59 07/06/24 21:44 Vital Signs Date Time Temp Pulse Resp B/P (MAP) Pulse Ox O2 Delivery O2 Flow Rate FiO2 07/06/24 22:50 102.0 101 33 145/65 97 Room Air* 0 21 07/06/24 21:45 102.2 07/06/24 21:36 102.2 101 33 177/95 97 Room Air* 0 21 07/06/24 21:14 103.1 132 24 178/107 94 Room Air Medical Decision Making MDM The patient is a 44-year-old male with a history of hypertension who presents to the emergency department with complaints of generalized body weakness, body ache s, fevers, cough onset this morning. CBC showed no leukocytosis, no anemia, chemistry showed no electrolyte imbalance, negative lipase, negative troponin. Serology positive for influenza A. Patient will be treated with Tamiflu. Patient no acute distress, nontoxic appearance. Chest x-ray with prominent increased markings Differential diagnosis: Pneumonia, ACS, upper respiratory infection, sepsis Need for hospitalization: Patient does not meet criteria for hospitalization. There are no social concerns with this patient. DX & DISP Disposition: Discharge Departure Impression: Primary Impression: Influenza A Additional Impression: Viral upper respiratory infection Condition: Stable Scripts Oseltamivir Phosphate (Tamiflu) 75 Mg Cap 1 CAP PO BID for 5 Days, #10 CAP 0 Refills Prov: REBECCA DARLING 07/06/24 Additional Instructions: FOLLOW-UP WITH PRIMARY CARE PROVIDER IN 1 TO 2 DAYS. TAKE MEDICATIONS DIRECTED HERE IN THE EMERGENCY ROOM. OKAY TO CONTINUE HOME MEDICATIONS UNLESS OTHERWISE DISCUSSED DURING YOUR VISIT IN THE EMERGENCY ROOM TODAY. RETURN TO YOUR NEAREST EMERGENCY ROOM IF SYMPTOMS WORSEN OR IF THERE IS NO IMPROVEMENT. CALL 911 IF YOU NEED IMMEDIATE ASSISTANCE. TAKE TYLENOL OR MOTRIN OVER -THE-COUNTER NEEDED AND IF NO CONTRAINDICATIONS ARE PRESENT. INCREASE ORAL HYDRATION. A WOUND CULTURE OR URINE CULTURE WAS ORDERED HERE IN THE EMERGENCY ROOM DEPARTMENT PLEASE FOLLOW-UP WITH PRIMARY CARE PROVIDER AND ADVISE THEM TO GET REPEAT PORTS FROM OUR FACILITY. IF YOU HAD ANY PHILL WRAP/SPLINTS THAT WERE APPLIED HERE, PLEASE DO NOT REMOVE THEM UNTIL YOU SEE YOUR PRIMARY CARE OR SPECIALTY. Referrals: SELF,REFERRAL (PCP) Time of Disposition: 23:31 I have reviewed the case, and I agree with, Diagnosis and Plan REBECCA DARLING Jul 06, 2024 23:32
[2024-07-06 23:38] VITALS: BP 140/65; PULSE 88; RESP 33; TEMP 98.9; O2SAT 97
--- NOTE | 2024-07-07 09:05 | HMCIMG ---
Exam Type: CHEST 1VW Clinical Information: sob Comparison: None Findings: The lungs are clear of infiltrates. The heart is normal in size. The bony and soft tissue structures of the chest are unremarkable. Impression: Clear lungs.
== END 2024-07-06 23:36 | disposition home or self-care (01) ==
LOC: EDH 21:09
DX: J10.1 Influenza due to other identified influenza virus with other respiratory manifestations (principal); B97.89 Other viral agents as the cause of diseases classified elsewhere; I10 Essential (primary) hypertension; Z20.822 Contact with and (suspected) exposure to COVID-19
CPT/HCPCS: 99285; 96365; 71045; 87635; 96375; 82550; 84484; 80048; 83880; 85025; 87040 ×2; 87880; 87804 ×2; 83605; 36415; 93005; J7030; J0696; J2405

== ENCOUNTER 2024-11-05 18:30 | Emergency (ER) | payer SELFPAY ==
[~2024-11-05] VITALS: Ht 165.1 cm; Wt 98.4 kg
[~2024-11-05 18:30] MED LIST changes: +OSEL75 PO
[2024-11-05 19:00] LABS: BASOPHILS # (AUTO) 0.05 K/uL (0.00-0.20); BASOPHILS % (AUTO) 0.8 % (0.0-5.0); EOSINOPHILS # (AUTO) 0.16 K/uL (0.00-0.70); EOSINOPHILS % (AUTO) 2.6 % (0.0-8.0); HEMATOCRIT 42.2 % (42-54); IMMATURE GRANULOCYTE ABSOLUTE 0.02 K/uL (0-1); LYMPHOCYTES # (AUTO) 1.9 K/uL (1.0-4.8); LYMPHOCYTES % (AUTO) 29.9 % (21.0-51.0); MEAN CORPUSCULAR HEMOGLOBIN 29.7 pg (27.0-33.0); MEAN CORPUSCULAR HGB CONC 33.2 g/dL (32.0-36.0); MEAN CORPUSCULAR VOLUME 89.6 fL (79-99); MONOCYTES # (AUTO) 0.4 K/uL (0.1-1.0); MONOCYTES % (AUTO) 6.6 % (3.0-13.0); NEUTROPHILS # (AUTO) 3.7 K/uL (1.8-7.7); NEUTROPHILS % (AUTO) 59.8 % (40.0-77.0); PLATELET COUNT (AUTO) 171 K/uL (130-400); RED BLOOD CELL COUNT(AUTO) 4.71 MIL/uL (4.50-6.20); RED CELL DISTRIBUTION WIDTH 12.9 % (11.0-15.5); WHITE BLOOD COUNT (AUTO) 6.2 K/uL (4.8-10.8)
[2024-11-05 19:07] LABS: POTASSIUM 4.1 mmol/L (3.5-5.1)
--- NOTE | 2024-11-05 19:56 | ERN ---
General Chief Complaint: Low Back Pain/Injury Stated Complaint: LEFT LOWER BACK PAIN Time Seen by MD: 18:33 Time Seen by Midlevel: 18:33 Source: patient History of Present Illness Initial Comments The patient is a 44-year-old male presenting to the emergency department for evaluation of left lower back pain. The pain has been intermittent in nature for the last month and a half. He denies any direct injury to the area. He does report heavy alcohol use and is concern for kidney issues. Denies any other symptoms at this time Allergies: Coded Allergies: No Known Allergies (Unverified Allergy, Unknown, 01/20/19) No Known Drug Allergies (Unverified Allergy, Unknown, 06/19/19) Home Meds Active Scripts Oseltamivir Phosphate (Tamiflu) 75 Mg Cap, 1 CAP PO BID for 5 Days, #10 CAP 0 Refills Prov:REBECCA DARLING IT PROJECT COORDINATOR 07/06/24 Benzonatate (Tessalon Perles) 100 Mg Cap, 100 MG PO TID for cough for 10 Days, #30 CAP 0 Refills Prov:ENRRIQUE MORTON 06/18/24 Methylprednisolone (Medrol) 4 Mg Tab.ds.pk, 1 TAB PO AD for 6 Days, #21 TAB 0 Refills 6 on day 1 then reduce by one tablet daily until gone Prov:ENRRIQUE MORTON 06/18/24 Dicyclomine HCl (Bentyl) 20 Mg Tab, 20 MG PO Q6HPRN PRN for MODERATE PAIN, #30 TAB Prov:MARIUM LOWE NP 01/06/24 Ibuprofen (Ibuprofen) 600 Mg Tablet, 600 MG PO Q6H PRN for PAIN, #30 TAB 0 Refills Prov:KRYSTAL GRAY MD 10/16/23 D-Methorphan Hb/Acetaminophen (Pain Relief Cold & Cough Liq) 1,000 Mg-30 Mg/30 Ml Liquid, 5 ML PO QIDP PRN for COUGH/COLD SYMPTOMS, #100 ML 0 Refills Prov:KRYSTAL GRAY MD 10/16/23 Cetirizine HCl (Cetirizine HCl) 10 Mg Tablet, 10 MG PO DAILY, #30 TAB Prov:CORRINE RAMIREZ IT PROJECT COORDINATOR 06/17/22 Past Medical History Past Medical History: No Pertinent History, Hypertension Past Surgical History: None Family History Family History: Negative Social History Social History: ETOH, Lives with family ROS Dictation CONSTITUTIONAL: Negative except for HPI HEAD/FACE: Negative except for HPI EENT: Negative except for HPI RESPIRATORY: Negative except for HPI GASTROINTESTINAL/ABDOMINAL: Negative except for HPI GENITOURINARY: Negative except for HPI MUSCULOSKELETAL: Negative except for HPI INTEGUMENTARY: Negative except for HPI NEUROLOGICAL/PSYCH: Negative except for HPI HEMATOLOGIC/LYMPHATIC: Negative except for HPI All Systems Negative, Except as noted above. 13 point review of systems assessed and all negative except for above. Physical Exam Physical Exam Dictation Vital Signs reviewed General Appearance: Alert, oriented x 3, no acute distress, well developed, nourished. Head and Face: non-traumatic. Eyes: PERRL, pink conjunctivas, eyelid no trauma, anterior chamber with arcus senilis. Ears: Pinnas intact and no signs of trauma or erythema ear canals clear and no discharge TM no erythema Nose: No discharge, no bleeding. Oropharynx: Mouth normal, tongue pink, pharynx clear,no erythema, tonsils no exudates, no abscesses noted, mucous membrane moist Neck: Supple, non-tender, no thyromegaly, no masses, no JVD, no bruits Breast:Deferred Chest:No tenderness, no crepitus, no paradoxical movement, no retractions Lungs:Clear, well-ventilated, symmetric, no rales, no wheezing, no rhonchi, no stridor, good breath sounds bilaterally Heart: Regular rate, regular rhythm, no murmur, no gallops Vascular: no peripheral edema, Abdomen: Soft, positive bowel sounds, nondistended, no guarding, nontender, no rebound, no masses no hepatomegaly, no splenomegaly, no Germain's sign, no hernias. Rectal: Deferred Genital: Deferred Neurological: Normal speech, motor function intact, sensory function intact Musculoskeletal: Neck nontender, full range of motion, back nontender, full range of motion, Extremities: nontender, full range of motion Skin: Color pink, dry, no turgor, no rash, no lacerations, no abrasions, no contusions. Lymphatic: Deferred Results Laboratory and Microbiology Lab and Micro Result Laboratory Tests Test 11/05/24 18:49 11/05/24 20:16 White Blood Count 6.2 K/uL (4.8-10.8) Red Blood Count 4.71 MIL/uL (4.50-6.20) Hemoglobin 14.0 g/dL (14.0-18.0) Hematocrit 42.2 % (42-54) Mean Corpuscular Volume 89.6 fL (79-99) Mean Corpuscular Hemoglobin 29.7 pg (27.0-33.0) Mean Corpuscular Hemoglobin Concent 33.2 g/dL (32.0-36.0) Red Cell Distribution Width 12.9 % (11.0-15.5) Platelet Count 171 K/uL (130-400) Mean Platelet Volume 10.4 fL (7.5-10.5) Immature Granulocyte % (Auto) 0.3 % (0-1) Neutrophils (%) (Auto) 59.8 % (40.0-77.0) Lymphocytes (%) (Auto) 29.9 % (21.0-51.0) Monocytes (%) (Auto) 6.6 % (3.0-13.0) Eosinophils (%) (Auto) 2.6 % (0.0-8.0) Basophils (%) (Auto) 0.8 % (0.0-5.0) Neutrophils # (Auto) 3.7 K/uL (1.8-7.7) Lymphocytes # (Auto) 1.9 K/uL (1.0-4.8) Monocytes # (Auto) 0.4 K/uL (0.1-1.0) Eosinophils # (Auto) 0.16 K/uL (0.00-0.70) Basophils # (Auto) 0.05 K/uL (0.00-0.20) Absolute Immature Granulocyte (auto 0.02 K/uL (0-1) Nucleated Red Blood Cells 0.0 % (0.0-0.19) Sodium Level 141 mmol/L (136-145) Potassium Level 4.1 mmol/L (3.5-5.1) Chloride Level 107 mmol/L (101-111) Carbon Dioxide Level 29 mmol/L (21-32) Blood Urea Nitrogen 22 mg/dL (7-18) H Creatinine 1.0 mg/dL (0.5-1.3) Glomerular Filtration Rate Calc 95 mL/min (>90) Random Glucose 125 mg/dL (70-105) H Total Calcium 9.2 mg/dL (8.5-10.1) Urine Color LIGHT-YELLOW (YELLOW) Urine Appearance CLEAR (CLEAR) Urine pH 6.0 (5.0-8.0) Urine Specific [place] 1.027 (1.001-1.031) Urine Protein NEGATIVE mg/dL (NEGATIVE) Urine Glucose (UA) NEGATIVE mg/dL (NEGATIVE) Urine Ketones NEGATIVE mg/dL (NEGATIVE) Urine Occult Blood NEGATIVE (NEGATIVE) Urine Nitrate NEGATIVE (NEGATIVE) Urine Bilirubin NEGATIVE mg/dL (NEGATIVE) Urine Urobilinogen 3 mg/dL (0.2-1.0) H Urine Leukocyte Esterase NEGATIVE Ernie/uL Labs Reviewed?: Yes MDM MDM: Differential diagnosis: Urinary tract infection, pyelonephritis, dehydration, electrolyte abnormality There are no social concerns with this patient. Prescription drug management Prescriptions will include: None Medical management and examination interpretation discussions were had by me with other qualified healthcare professionals as indicated for the patient's care. ED Course Orders Procedure Category Date Status Time Cbc With Differential LAB 11/05/24 Complete 18:34 Basic Metabolic Panel LAB 11/05/24 Complete 18:34 Urinalysis Profile LAB 11/05/24 Complete 18:34 Vital Signs Date Time Temp Pulse Resp B/P (MAP) Pulse Ox O2 Delivery O2 Flow Rate FiO2 11/05/24 18:31 97.9 89 16 145/103 95 Room Air 0 DX & DISP Disposition: Discharge Departure Impression: Primary Impression: Low back strain Condition: Stable Additional Instructions: Your blood work today is unremarkable. Your kidney function is normal. Your urinalysis does not show any evidence of infection. You need to follow up with your primary care doctor in 2-3 days for repeat evaluation. Your back pain appears to be musculoskeletal in nature. You may take Tylenol and Motrin as needed for pain. Referrals: SELF,REFERRAL (PCP) Time of Disposition: 20:42 I have reviewed the case, and I agree with, Diagnosis and Plan I performed the substantive portion of the visit. I have reviewed and personally made and approve the management plan that is documented in the note by myself or the OG. I acknowledge for responsibility for the patient's management plan. ENRRIQUE MORTON Nov 05, 2024 19:56
[2024-11-05 20:33] LABS: ADD UA MICROSCOPIC NO; APPEARANCE,URINE CLEAR (CLEAR); BILIRUBIN,URINE NEGATIVE (NEGATIVE); COLOR,URINE LIGHT-YELLOW (YELLOW); GLUCOSE, URINE (UA) NEGATIVE (NEGATIVE); KETONES,URINE NEGATIVE (NEGATIVE); LEUKOCYTE ESTERASE ,URINE NEGATIVE Leu/uL (NEGATIVE); NITRATE,URINE NEGATIVE (NEGATIVE); OCCULT BLOOD,URINE NEGATIVE (NEGATIVE); PROTEIN,URINE NEGATIVE (NEGATIVE); UROBILINOGEN,URINE 3 mg/dL (0.2-1.0)
[2024-11-05 20:51] VITALS: BP 142/87; PULSE 85; RESP 18; TEMP 98.2; O2SAT 99
== END 2024-11-05 20:52 | disposition home or self-care (01) ==
LOC: EDH 18:30
DX: S39.012A Strain of muscle, fascia and tendon of lower back, initial encounter (principal); I10 Essential (primary) hypertension; Z79.899 Other long term (current) drug therapy; X58.XXXA Exposure to other specified factors, initial encounter; Y93.89 Activity, other specified; Y92.89 Other specified places as the place of occurrence of the external cause; Y99.8 Other external cause status
CPT/HCPCS: 36415; 80048; 81003; 85025; 99283